=== PATIENT | female | born 1995 | race Caucasian/White ===

== ENCOUNTER 2017-11-11 18:59 | Emergency (ER) | payer OTHER ==
[2017-11-11 19:11] VITALS: RESP 20
[2017-11-11] MEDS ORDERED: ONDANSETRON DISINTEGRATING 4 MG TAB PO ONE (19:52)
--- NOTE | 2017-11-11 19:57 | EDPHY ---
H & P Time Seen by Provider: 11/11/17 19:18 HPI/ROS: CHIEF COMPLAINT: Fever, cough HISTORY OF PRESENT ILLNESS: 22-year-old female presents to the emergency department with fever and cough and myalgias. Patient began feeling sick 2 days ago and she felt like symptoms are getting worse last night. She was feeling nauseous. No vomiting. No diarrhea. No abdominal pain. Last menstrual period was 1 week ago and she denies . No known ill contacts. She did receive a flu shot this year. No history of pneumonia. She denies chest pain or difficulty breathing. REVIEW OF SYSTEMS: Constitutional: Subjective fevers, chills Eyes: No double or blurry vision. ENT: No sore throat. Respiratory: Cough. no shortness of breath. Cardiac: No chest pain. Gastrointestinal: Nausea. No abdominal pain, vomiting or diarrhea. Genitourinary: No dysuria. Musculoskeletal: No neck or back pain. Skin: No rashes. Neurological: No headache. Past Medical/Surgical History: Hand's palsy 2016 Social History: Single Smoking Status: Current every day smoker Physical Exam: General Appearance: Alert, no distress. 98% on room air. Temperature 37.1 degrees Eyes: Pupils equal and round. Extraocular motions are all intact. ENT: Mouth: Mucous membranes moist. Respiratory: No wheezing, rhonchi, or rales, lungs are clear to auscultation. Cardiovascular: Regular rate and rhythm. Gastrointestinal: Abdomen is soft and nontender, no masses, no rebound or guarding, bowel sounds normal. Neurological: Alert and oriented x 3, cranial nerves II through XII grossly intact Skin: Warm and dry, no rashes. Musculoskeletal: Nontender to palpate along the cervical, thoracic or lumbar spine. Neck is supple. Extremities: Full range of motion and no peripheral edema. Psychiatric: Patient is oriented X 3, there is no agitation. Constitutional: Initial Vital Signs Temperature (C) 37.1 C 11/11/17 19:09 Heart Rate 79 11/11/17 19:09 Respiratory Rate 20 11/11/17 19:09 Blood Pressure 126/81 H 11/11/17 19:09 O2 Sat (%) 98 11/11/17 19:09 O2 Delivery Mode Room Air Allergies/Adverse Reactions: No Known Allergies Allergy (Unverified 11/11/17 19:08) Home Medications: Medication Instructions Recorded Ortho Tri-Cyclen Lo Tablet 11/11/17 Medical Decision Making ED Course/Re-evaluation: RSV influenza negative. Patient was reassured. She appears well. She did improve with 4 mg Zofran ODT. She was tolerating p.o. Fluids. She likely has viral illness. I doubt pneumonia. Her lungs are clear to auscultation. She is not coughing in the emergency department. She was encouraged to have close follow-up with her primary care provider. The patient tells me that she had Hand's palsy in 2016 which she states started after a sinus infection which turned into an ear infection. Clinically I doubt sinusitis. She has no evidence of otitis media on examination. I do not think chest x-rays indicated. Patient was given a note for school. She was instructed to return to the emergency department if she developed difficulty breathing, pain in her chest, fever, or if she felt worse in any way. Differential Diagnosis: Including but not limited to viral upper respiratory infection, influenza, RSV, bronchitis, pneumonia - Data Points Laboratory Results: 11/11/17 19:59 Nasal Influenza A PCR NEGATIVE FOR FLU A (NEGATIVE) Nasal Influenza B PCR NEGATIVE FOR FLU B (NEGATIVE) RSV (PCR) NEGATIVE FOR RSV (NEGATIVE) Medications Given: Discontinued Medications Ondansetron HCl (Zofran Odt) 4 mg PO EDNOW ONE Stop: 11/11/17 19:53 Last Admin: 11/11/17 19:55 Dose: 4 mg Ondansetron HCl (Zofran Odt 4 Mg Prepack#2) 1 btl TAKEHOME EDNOW ONE Stop: 11/11/17 21:59 Last Admin: 11/11/17 21:58 Dose: 1 btl Departure - Departure Disposition: Home, Routine, Self-Care Clinical Impression: Upper respiratory infection Qualifiers: URI type: unspecified URI Qualified Code(s): J06.9 - Acute upper respiratory infection, unspecified Condition: Good Instructions: Ondansetron (By mouth), Upper Respiratory Infection (ED) Additional Instructions: Adult Pain & Fever Control: We recommend Acetaminophen (Tylenol) and Ibuprofen (Motrin,Advil) for pain and fever control. When fever is high or pain severe, both drugs can be used at the same time, but at different intervals. Please note the time differences. Your dose is: Acetaminophen 1000mg every 4 to 6 hours Ibuprofen 600mg every 8 hours with food Note: do not take Acetaminophen with Hydrocodone (Vicodin, Lortab) or Oycodone (Percocet). These medications also contain Acetaminophen. No more than 3000mg of Acetaminophen should be taken in 24 hours (for an adult). Referrals: Cassia Berry MD [[facility] [place] Primary Care Provider] - 2-3 days, if not improved (Primary care provider documentation spec) Stand Alone Forms: School Excuse
[2017-11-11] MEDS ORDERED: ONDANSETRON 4MG PREPACK#2 BTL TAKEHOME ONE ×2 (21:57→21:58)
[2017-11-11 22:11] VITALS: BP 116/70; PULSE 69; TEMP 98.1; O2SAT 97
== END 2017-11-11 22:11 | disposition home or self-care (01) ==
DX: J06.9 Acute upper respiratory infection, unspecified (principal); F17.200 Nicotine dependence, unspecified, uncomplicated